=== PATIENT | female | born 2005 | race Caucasian/White ===

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

== ENCOUNTER 2025-01-19 10:56 | Emergency (ER) | payer SELFPAY ==
[2025-01-19 11:04] VITALS: BP 121/71; PULSE 80; RESP 16; TEMP 36.6; O2SAT 100
--- NOTE | 2025-01-19 11:04 | ED.NECK ---
HPI - Neck Pain/Injury General Chief Complaint: Neck Pain/Injury Stated Complaint: NECK PAIN Time Seen by Provider: 01/19/25 11:04 Source: patient Mode of arrival: ambulatory Limitations: no limitations History of Present Illness HPI Narrative: 19 yo F presents with c/o that she woke up with stiff neck this AM. Denies injury. Increase in pain with movement. does a lot of heavy lifting at work but no recent work injury. did not take any OTC pain meds to treat symptoms. All systems reviewed and negative except as noted above. Related Data Home Medications ?Medication ?Instructions ?Recorded ?Confirmed ?Last Taken ?Type fluticasone propionate 50 2 spray intranasal DAILY PRN 02/21/21 09/01/24 Unknown History mcg/actuation nasal Congestion spray,suspension (Flonase Allergy Relief) fexofenadine 180 mg tablet 180 mg PO DAILY 09/30/22 09/01/24 Unknown History (Rachel Allergy) esomeprazole magnesium 20 mg 20 mg PO DAILY 07/07/24 09/01/24 Unknown History capsule,delayed release (Nexium) naproxen 500 mg tablet mg 09/01/24 Unknown History Allergies Allergy/AdvReac Type Severity Reaction Status Date / Time No Known Allergies Allergy Verified 01/19/25 11:13 PMFSH Comments At time of signature, agree with nursing past medical, surgical, social and family history. There is no relevant family history pertinent to the presenting complaint. Exam Narrative: GENERAL: This is a well-nourished, well-developed patient, in no apparent distress. HEAD: normocephalic, atraumatic. EYES: PERRL. Sclera clear/white. Vision is grossly intact. EARS: External ears normal NOSE: External nose normal NECK: Neck supple, without lymphadenopathy, masses or thyromegaly. Tenderness to right trapezius. Decreased extension and rotation to left due to pain. No midline tenderness. CARDIOVASCULAR: Regular rate and rhythm without murmurs, gallops, or rubs. RESPIRATORY: Clear to auscultation. Breath sounds equal bilaterally. No wheezes, rales, or rhonchi. SKIN: warm, Dry, intact with no suspicious lesions or rash, good texture and turgor. NEURO: awake, alert, and oriented to person, place and time. There were no obvious focal neurologic abnormalities. EXTREMITIES: No joint tenderness, effusion, or edema noted. Course Course Level of Care: Express Care Visit Vital Signs Vital signs: Vital Signs Temperature 36.6 C 01/19/25 11:04 Pulse Rate 80 01/19/25 11:04 Respiratory Rate 16 01/19/25 11:04 Blood Pressure 121/71 01/19/25 11:04 Pulse Oximetry 100 01/19/25 11:04 Temperature 36.6 C 01/19/25 11:04 Pulse Rate 80 01/19/25 11:04 Respiratory Rate 16 01/19/25 11:04 Blood Pressure 121/71 01/19/25 11:04 Pulse Oximetry 100 01/19/25 11:04 Reviewed MDM - Neck Pain/Injury MDM Narrative Medical decision making narrative: recommend [id number] pain medication such as or ibuprofen. Will prescribe methocarbamol. Recommend stretching, ice, heat. Will follow up with primary care physician if not improving. No neuro deficits or extremity weakness. Patient is well-appearing, nontoxic. Discharge Plan Discharge Clinical Impression: Acute torticollis Patient Disposition: Home Condition: Stable Instructions: Spasmodic Torticollis (ED) Additional Instructions: Take medications as prescribed. Methocarbamol as a muscle relaxant may cause drowsiness. Do not drive while taking this medication. Alternate between ice and heat. Do stretching exercises as tolerated. Follow-up with your primary care physician if symptoms are not improving. Patient Language: [place] Sudanese Prescriptions: New methocarbamol 500 mg tablet 500 mg PO Q6H PRN (Reason: muscle pain/spasm) Qty: 30 0RF ibuprofen 600 mg tablet 600 mg PO Q6H PRN (Reason: pain) Qty: 30 0RF lidocaine 5 % adhesive patch,medicated 1 patch topical DAILY Qty: 15 0RF Rx Instructions: leave on most painful area for up to 12 hrs No Action naproxen 500 mg tablet fluticasone propionate [Flonase Allergy Relief] 50 mcg/actuation [place],Suspension 2 spray INTRANASAL DAILY PRN (Reason: Congestion) fexofenadine [Rachel Allergy] 180 mg Tablet 180 mg PO DAILY esomeprazole magnesium [Nexium] 20 mg capsule,delayed release(DR/EC) 20 mg PO DAILY Follow-up/Referrals: Jennifer,Charles [Other] Stand Alone Forms: Work/School Release IP Time of Disposition: 11:20
== END 2025-01-19 11:24 | disposition home or self-care (01) ==
PROVIDERS: Emergency Provider Nurse Practitioner Family
DX: M43.6 Torticollis (principal)
CPT/HCPCS: 99213; G0463

== ENCOUNTER 2025-04-13 08:58 | Emergency (ER) | payer OTHER, SELFPAY ==
[2025-04-13 09:17] VITALS: BP 120/68; PULSE 80; RESP 18; TEMP 36.7; O2SAT 100
--- NOTE | 2025-04-13 09:57 | ED_ITS ---
HPI - Abdominal Pain General Chief Complaint: Abdominal Pain Stated Complaint: ABD CRAMPS Source: patient Mode of arrival: ambulatory Limitations: no limitations History of Present Illness HPI narrative: Pt presents for evaluation of pelvic cramping that occurred this morning for about an hour. She took 400 mg of ibuprofen and her symptoms have markedly improved. Pain was bilateral but more prominent on the right. She denies any fever, chills, nausea, vomiting, vaginal bleeding or discharge. She is not sexually active. She states her pain is near completely resolved. Related Data Home Medications ?Medication ?Instructions ?Recorded ?Confirmed ?Last Taken ?Type fluticasone propionate 50 2 spray intranasal DAILY PRN 02/21/21 09/01/24 Unknown History mcg/actuation nasal Congestion spray,suspension (Flonase Allergy Relief) fexofenadine 180 mg tablet 180 mg PO DAILY 09/30/22 Unknown History (Rachel Allergy) esomeprazole magnesium 20 mg 20 mg PO DAILY 07/07/24 0 09/01/24 Unknown History capsule,delayed release (Nexium) naproxen 500 mg tablet mg 09/01/24 Unknown History Allergies Allergy/AdvReac Type Severity Reaction Status Date / Time No Known Allergies Allergy Verified 04/13/25 09:16 Review of Systems Review of Systems: CONSTITUTIONAL: Denies fever, chills, or sweats. EYES: Denies visual changes, redness, or discharge. ENT: Denies rhinorrhea, congestion, sore throat, or otalgia. CARDIOVASCULAR: Denies chest pain, palpitations, or edema. RESPIRATORY: Denies cough or dyspnea. GASTROINTESTINAL: Denies nausea, vomiting, or diarrhea. GENITOURINARY: Reports pelvic cramping earlier, now near fully resolved. Denies dysuria or hematuria. SKIN: Denies rash or itching. MUSCULOSKELETAL: Denies back pain, joint pain, or myalgia. NEUROLOGIC: Denies headache, numbness, dizziness, or weakness. PSYCHIATRIC: Denies anxiety or depression. [facility] Past Medical History Medical History No pertinent past medical history Surgical History Surgical History (Updated 04/13/25 @ 10:00 by EVANGELINA Bowie, ZAINAB) No pertinent past surgical history Family History Family History (Updated 04/13/25 @ 10:00 by Rosendo Cerrato, BAR MACHINE OPERATOR PRODUCTION, ) Mother Family history non-contributory Social History Social History Gender identity (if verbalized by the patient): Female Spiritual care concerns: No Exam Narrative: GENERAL: Well-appearing, well-nourished, and in no acute distress. HEAD: Normocephalic, atraumatic. EYES: PERRLA and EOMI. ENT: Nares clear, no rhinorrhea or epistaxis. Mucous membranes moist. Oropharynx without tonsillar hypertrophy exudate or other lesions. Bilateral TMs pearly rogers nonbulging NECK: Supple. No adenopathy or masses. No carotid bruits or JVD CHEST: Clear to auscultation. No respiratory distress. No wheezes rales or rhonchi HEART: Regular rate and rhythm. No murmur heard. Normal peripheral pulses. ABDOMEN: Soft, nondistended, normal active bowel sounds. There is mild suprapubic tenderness without rebound or guarding EXTREMITIES: Normal range of motion. No edema. SKIN: Warm, dry, no rash. NEURO: No focal deficits. Alert and oriented x3. PSYCH: Normal mood and affect. Course Course Emergency Course: This is a 20-year-old female who presented for evaluation of pelvic cramping that occurred earlier today but is near completely resolved. Urine today without evidence of infection. negative. Patient appears well. She is advised in the event that she has recurrence of her symptoms she should go to the emergency department with the present time she is centrally is not experiencing pain. She should also follow up with her primary care provider. Patient in agreement with plan of care. Level of Care: Express Care Visit Vital Signs Vital signs: Vital Signs Temperature 36.7 C 04/13/25 09:17 Pulse Rate 80 04/13/25 09:17 Respiratory Rate 18 04/13/25 09:17 Blood Pressure 120/68 04/13/25 09:17 Pulse Oximetry 100 04/13/25 09:17 Temperature 36.7 C 04/13/25 09:17 Pulse Rate 80 04/13/25 09:17 Respiratory Rate 18 04/13/25 09:17 Blood Pressure 120/68 04/13/25 09:17 Pulse Oximetry 100 04/13/25 09:17 MDM - Abdominal Pain Lab Data Labs: Lab Results 04/13/25 Range/Units 10:03 POC Urine Color Yellow POC Urine Clarity Clear POC Urine pH 6.0 POC Ur Specif [place] 1.025 POC Urine Protein Trace (Negative) POC Ur Glucose (UA) Negative (Negative) POC Urine Ketones Negative (Negative) POC Urine Blood Negative (Negative) POC Urine Nitrite Negative (Negative) POC Urine Bilirubin Negative (Negative) POC Urine Urobilinogen 0.2 POC U Leukocyte Esteras Negative (Negative) POC Urine HCG, Qual Negative (Negative) Discharge Plan Discharge Clinical Impression: Abdominal pain Patient Disposition: Home Condition: Stable Instructions: Antibiotic Form, Abdominal Pain (ED) Additional Instructions: IF YOU HAVE RECURRENCE OF YOUR PAIN PLEASE GO TO THE EMERGENCY DEPARTMENT Patient Language: Danish Prescriptions: No Action naproxen 500 mg tablet fluticasone propionate [Flonase Allergy Relief] 50 mcg/actuation [place],Suspension 2 spray INTRANASAL DAILY PRN (Reason: Congestion) fexofenadine [Rachel Allergy] 180 mg Tablet 180 mg PO DAILY esomeprazole magnesium [Nexium] 20 mg capsule,delayed release(DR/EC) 20 mg PO DAILY methocarbamol 500 mg tablet 500 mg PO Q6H PRN (Reason: muscle pain/spasm) Qty: 30 0RF ibuprofen 600 mg tablet 600 mg PO Q6H PRN (Reason: pain) Qty: 30 0RF lidocaine 5 % adhesive patch,medicated 1 patch topical DAILY Qty: 15 0RF Rx Instructions: leave on most painful area for up to 12 hrs Follow-up/Referrals: Hunter,Kailey Arcos APRN [Primary Care Provider, Unknown] Time of Disposition: 09:53
[2025-04-13 10:05] LABS: BEDSIDEPREGUCG Negative (Negative); EDUAAPPEAR Clear; EDUABILI Negative (Negative); EDUABLOOD Negative (Negative); EDUACOLOR1 Yellow; EDUAGLUCOSE Negative (Negative); EDUAKETONE Negative (Negative); EDUALEUKO Negative (Negative); EDUANITRATE Negative (Negative); EDUAPH 6.0; EDUAPROTEIN Trace (Negative); EDUASPGRAVITY 1.025; EDUAUROBILI 0.2
== END 2025-04-13 10:21 | disposition home or self-care (01) ==
PROVIDERS: Emergency Provider Nurse Practitioner; PCP Nurse Practitioner
DX: R10.31 Right lower quadrant pain (principal); R10.32 Left lower quadrant pain
CPT/HCPCS: 81003; 81025; 99212; G0463